=== PATIENT | male | born 1975 | race Caucasian/White ===

== ENCOUNTER 2017-01-25 19:48 | Emergency (ER) | payer OTHER ==
[~2017-01-25] VITALS: Ht 172.7 cm; Wt 82.9 kg
[~2017-01-25 19:48] MED LIST: NAPROSYN500 MG PO
[2017-01-25] MEDS ORDERED: PERCOCET 5/31 TABLET PO (22:08)
[2017-01-25] MEDS ORDERED: KEFLEX500 MG PO (22:08)
[2017-01-25 22:42] VITALS: BP 153/87
== END 2017-01-25 23:00 | disposition home or self-care (01) ==
LOC: RME 19:48 → EME 19:48 → RME 23:00
DX: S62.650B Nondisplaced fracture of middle phalanx of right index finger, initial encounter for open fracture (principal); Z23 Encounter for immunization; W23.0XXA Caught, crushed, jammed, or pinched between moving objects, initial encounter; Z88.2 Allergy status to sulfonamides
CPT/HCPCS: 73140; 99281; 99285; J0690; S0020